=== PATIENT | female | born 1990 | race American Indian/Alaskan Native ===

== ENCOUNTER 2019-03-10 09:14 | Emergency (ER) | payer SELFPAY ==
[2019-03-10] MEDS ORDERED: TYLENOL PO ONE (09:44)
--- NOTE | 2019-03-10 11:18 | Emergency Department Report ---
ED Extremity Problem HPI - General Chief complaint: Extremity Injury, Lower Stated complaint: (L) ANKLE PAIN Time Seen by Provider: 03/10/19 09:44 Source: patient Mode of arrival: Wheelchair Limitations: No Limitations - History of Present Illness Initial comments: Patient is a 28-year-old female who is presenting status post injury to the left ankle. Patient states that she was walking she twisted the ankle. She did hear a pop. Patient been unable to bear weight since the fall. Patient is in her first trimester of . Patient has no past medical history. Patient states pain is 8 out of 10 in severity and is worse with movement. Severity scale (0 -10): 10 - Related Data Allergies Allergy/AdvReac Type Severity Reaction Status Date / Time codeine Allergy Hives Verified 03/10/19 09:33 ED Review of Systems ROS: Stated complaint: (L) ANKLE PAIN Other details as noted in HPI Comment: All other systems reviewed and negative ED Past Medical Hx - Past Medical History Previous Medical History?: No - Surgical History Past Surgical History?: No - Social History Smoking Status: Never Smoker Substance Use Type: None ED Physical Exam - General Limitations: No Limitations General appearance: alert, in no apparent distress - Head Head exam: Present: atraumatic, normocephalic - Eye Eye exam: Present: normal appearance - ENT ENT exam: Present: mucous membranes moist - Respiratory Respiratory exam: Absent: respiratory distress - Extremities Exam Extremities exam: Present: normal inspection - Expanded Lower Extremity Exam Left Ankle exam: Present: tenderness (generalized however pain is worse laterally), swelling. Absent: full ROM, laceration, ecchymosis, deformity, crepidus, dislocation - Back Exam Back exam: Present: normal inspection - Neurological Exam Neurological exam: Present: alert, oriented X3 - Psychiatric Psychiatric exam: Present: normal affect, normal mood - Skin Skin exam: Present: warm, dry, intact, normal color. Absent: rash ED Course Vital Signs 03/10/19 09:35 Temperature 98.5 F Pulse Rate 83 Respiratory 20 Rate O2 Sat by Pulse 100 Oximetry ED Medical Decision Making - Radiology Data Radiology results: image reviewed (left distal fibular fracture present. Very minimal displacement.) - Medical Decision Making Patient was placed in a posterior leg splint with side stirrups. Patient given crutches. Patient be discharged home to follow up with orthopedics. Patient Tylenol [id number] for minimal to moderate pain; since she is no narcotics have been given. This constitutes fracture care Critical care attestation.: If time is entered above; I have spent that time in minutes in the direct care of this critically ill patient, excluding procedure time. ED Disposition Clinical Impression: Fibula fracture Qualifiers: Encounter type: initial encounter Fibula location: distal Fracture type: closed Fracture morphology: unspecified fracture morphology Laterality: left Qualified Code(s): S82.832A - Other fracture of upper and lower end of left fibula, initial encounter for closed fracture Disposition: - TO HOME OR SELFCARE Is pt being admited?: No Does the pt Need Aspirin: No Condition: Stable Instructions: Ankle Fracture (ED), Crutch Instructions (ED), Splint Care (ED) Additional Instructions: Please take extra strength Tylenol for pain Referrals: MARIMAR REAGAN MD [Staff Physician] - 3-5 Days Time of Disposition: 11:20
--- NOTE | 2019-03-10 11:54 | XRay Report ---
LEFT ANKLE, 3 VIEWS INDICATION: pain swelling after fall. COMPARISON: None. IMPRESSION: There is severe diffuse soft tissue swelling. Normal bone mineralization. An oblique mi ldly comminuted fracture is identified in the distal fibula just proximal to the ankle joint. On the lateral view, there appears to be a chip fracture from the posterior surface of the distal tibia. The talar dome is intact. The ankle mortise is unremarkable. Signer Name: Abrahan Weiner Jr, MD Signed: 03/10/2019 11:50 AM Workstation Name: [id number]
== END 2019-03-10 11:25 | disposition home or self-care (01) ==
LOC: ED 09:14
DX: O9A.211 Injury, poisoning and certain other consequences of external causes complicating pregnancy, first trimester (principal); S82.832A Other fracture of upper and lower end of left fibula, initial encounter for closed fracture; Z79.899 Other long term (current) drug therapy; Z3A.00 Weeks of gestation of pregnancy not specified; W18.39XA Other fall on same level, initial encounter; Y93.89 Activity, other specified; Y92.89 Other specified places as the place of occurrence of the external cause; Y99.8 Other external cause status